=== PATIENT | female | born 1945 | race Caucasian/White ===

== ENCOUNTER 2018-10-18 09:44 | Emergency (ER) | payer OTHER, SELFPAY ==
[2018-10-18 09:52] VITALS: BP 185/83; PULSE 75; RESP 18; TEMP 36.5; O2SAT 97
--- NOTE | 2018-10-18 10:09 | DI.RAD_ITS ---
SYMPTOM/DIAGNOSIS: COUGH, HX ASTHMA PA AND LATERAL CHEST: There are no prior comparison exams. The heart is mildly enlarged. The aorta is tortuous but normal in diameter. There is mild respiratory motion on the lateral view. No infiltrate, effusion or pulmonary edema is seen. A left shoulder prosthesis is noted. IMPRESSION: No acute abnormality.
--- NOTE | 2018-10-18 10:12 | ED.GENADUL_ITS ---
Discharge Plan Disposition Patient Disposition: HOME Condition: Improving Discharge Details Chief Complaint: RespSymp Clinical Impression: Acute bronchitis Primary Care Provider: None,None ED Provider: Gelacio Toribio Home Meds and New Rx's Prescriptions: New prednisone 20 mg tablet 40 mg PO DAILY 5 Days Qty: 10 RF: 0 azithromycin 250 mg tablet See Rx Instructions .ROUTE .COMPLEX Qty: 6 RF: 0 Continued simvastatin 10 mg Tablet 10 mg PO QPM RF: 0 hydrocodone-acetaminophen [[place]] 10-325 mg Tablet 1 tab PO Q4H PRNRF: 0 omeprazole 40 mg Capsule,Delayed Release(Dr/Ec) 40 mg PO DAILY RF: 0 losartan-hydrochlorothiazide 100-25 mg Tablet 1 tab PO DAILY RF: 0 calcium carbonate [Calcium 600] 600 mg calcium (1,500 mg) Tablet 600 mg PO DAILY RF: 0 clonidine HCl 0.2 mg Tablet 0.2 mg PO TID RF: 0 glimepiride 4 mg Tablet 4 mg PO BID RF: 0 pramipexole 0.125 mg Tablet 0.125 mg PO DAILY RF: 0 docusate sodium 100 mg Capsule 100 mg PO BID RF: 0 gabapentin 300 mg Capsule 300 mg PO TID RF: 0 verapamil 240 mg Capsule,Ext Rel. Pellets 24 Hr 480 mg PO QAM RF: 0 coenzyme Q10 [CoQ-10] 100 mg Capsule 200 mg PO DAILY RF: 0 Januvia 50 mg Tablet 50 mg PO DAILY RF: 0 Discharge Instructions Instructions: Acute Bronchitis (ED) Additional Instructions: Continue all of your regular medications. Take antibiotics and prednisone as prescribed. Return for any acute concerns while in this area. Follow-up with your regular doctor in [place] upon your return. Medical Decision Making 73-year-old female presents from her home in [place] where she is been same for 2 weeks. She feels she had an upper respiratory illness on the airport when traveling here. She ran out of her pro-air inhaler and has now developed cough, congestion, production of green sputum with mild wheeze. She is afebrile and oxygenating normally, in no acute distress with a reassuring exam. She is referred for chest x-ray which does not reveal focal consolidation. Improving with beta agonist and systemic steroids. I will treat with a course of azithromycin, steroid burst, B-agonist as needed. Pt understands return and followup precautions. HPI General Mode of arrival: ambulatory . Date/Time Provider Initiated Documentation: 10/18/18 09:56 . Limitations to Documentation: no limitations . Information obtained by: patient . History of Present Illness 73 year old F presents to the emergency department with the chief complaint of Cough and wheezing, described as moderate and similar to prior episodes, Quality is described as constant, and is localized to the chest. Patient reports no radiation. Patient started experiencing this hour(s) and it has been constant. No relieving factors improve symptom(s), No exacerbating factors reported . Patient notes no other symptoms.. Patient did receive the following treatments prior to arrival, none Related Data Home Medications Medication Instructions Recorded Confirmed Januvia 50 mg PO DAILY 10/18/18 10/18/18 azithromycin See Rx Instructions .ROUTE 10/18/18 .COMPLEX #6 tab calcium carbonate [Calcium 600] 600 mg PO DAILY 10/18/18 10/18/18 clonidine HCl 0.2 mg PO TID 10/18/18 10/18/18 coenzyme Q10 [CoQ-10] 200 mg PO DAILY 10/18/18 10/18/18 docusate sodium 100 mg PO BID 10/18/18 10/18/18 gabapentin 300 mg PO TID 10/18/18 10/18/18 glimepiride 4 mg PO BID 10/18/18 10/18/18 hydrocodone-acetaminophen [[place]] 1 tab PO Q4H PRN 10/18/18 10/18/18 losartan-hydrochlorothiazide 1 tab PO DAILY 10/18/18 10/18/18 omeprazole 40 mg PO DAILY 10/18/18 10/18/18 pramipexole 0.125 mg PO DAILY 10/18/18 10/18/18 prednisone 40 mg PO DAILY 5 Days #10 tab 10/18/18 simvastatin 10 mg PO QPM 10/18/18 10/18/18 verapamil 480 mg PO QAM 10/18/18 10/18/18 Previous Rx's Medication Instructions Recorded azithromycin See Rx Instructions .ROUTE 10/18/18 .COMPLEX #6 tab prednisone 40 mg PO DAILY 5 Days #10 tab 10/18/18 Allergies Allergy/AdvReac Type Severity Reaction Status Date / Time thioridazine [From Mellaril] Allergy Unknown Unverified 10/18/18 09:57 General Stated Complaint: RespSymp HELEN: 3 Review of Systems Review of Systems Ran out of inhaler. Sputum production. She has otherwise been well. No chest pain. 6 systems reviewed and otherwise - [facility] Social History Smoking/Tobacco Use Status: Never Alcohol Intake: never Drug use: Never Substance use type: does not use Do you feel safe at home: Yes Do you feel safe in your relationship?: Yes Exam Narrative Exam Narrative: GEN: awake, alert, oriented 3. Pleasant, well groomed, interactive. HEAD: Normocephalic, atraumatic ENT: Mucous membranes moist, oropharynx unremarkable, External ear exam unremarkable EYES: PERRL, EOMI NECK: Full ROM, no CORI, no menigismus CHEST/RESP: Nontender, clear to auscultation bilateral, slightly diminished but no wheeze CARDIOVASCULAR: RRR, no murmur, rub miguel. 2+ Rad pulse bilateral ABDOMEN: Soft, nontender, no mass. +Bowel sounds EXT: Full ROM, no edema, no rash Neuro: Grossly normal neurologic exam, conversant, interactive. Psych: Speech fluent, thoughts congruent, affect normal Course Vital Signs Temperature 36.5 C 10/18/18 09:52 Pulse 75 10/18/18 09:52 Respiratory Rate 18 10/18/18 09:52 Blood Pressure 185/83 H 10/18/18 09:52 Pulse Oximetry 97 10/18/18 09:52 Temperature 36.5 C 10/18/18 09:52 Temperature Source Temporal Artery Scan 10/18/18 09:52 Pulse 75 10/18/18 09:52 Respiratory Rate 18 10/18/18 09:52 Respiratory Effort Non-Labored 10/18/18 09:56 Blood Pressure 185/83 H 10/18/18 09:52 Blood Pressure Position Sitting 10/18/18 09:52 Pulse Oximetry 97 10/18/18 09:52 Oxygen Delivery Method Room Air 10/18/18 09:52 Oxygen Flow Rate 0 10/18/18 09:52 Pain Level 0 10/18/18 09:52
[2018-10-18] MEDS: predniSONE 20 MG TAB 40 MG PO (10:14)
[2018-10-18] MEDS: Albuterol HFA 8 GM 60 PUFF INH IH (10:15)
[2018-10-18] MEDS: Inhaler, Assist Device 1 EACH MC (10:18)
[2018-10-18 10:52] VITALS: BP 158/74; PULSE 66; RESP 20; TEMP 36.7; O2SAT 94
--- NOTE | 2018-10-18 11:29 | DI.VRAD_ITS ---
EXAM: XR Chest, 2 Views EXAM DATE/TIME: 10/18/2018 10:44 AM CLINICAL HISTORY: 73 years old, female; Other: Cough, HX asthma TECHNIQUE: Imaging protocol: XR of the chest, 2 views. COMPARISON: No relevant prior studies available. FINDINGS: Lungs: Unremarkable. No consolidation. Pleural space: Unremarkable. No pleural effusion. No pneumothorax. Heart/Mediastinum: Unremarkable. No cardiomegaly. 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 Ordering:DARRIAN Brizuela MD
== END 2018-10-18 11:40 | disposition home or self-care (01) ==
LOC: ER 11:09
PROVIDERS: Emergency Provider Emergency Medicine
DX: J20.9 Acute bronchitis, unspecified (principal)
CPT/HCPCS: 99283; 71046; J7512